=== PATIENT | male | born 1930 | race Caucasian/White ===

== ENCOUNTER → 2017-01-16 | Outpatient (CLI) | payer MEDICARE ==
--- NOTE | 2017-01-16 09:38 | US ---
EXAMINATION TYPE: US duplex aorta DATE OF EXAM: 01/16/2017 8:30 AM COMPARISON: NONE CLINICAL HISTORY: I71.4 AAA. EXAM MEASUREMENTS: Abdominal Aorta: Proximal: 2.5cm Mid: 2.3cm Distal: aortic aneurysm measuring 4.6cm x 5.4cm in transverse, long 7.8cm, anteroposterior 5.2cm , there is some moderate plaque within Bifurcation: Rt 1.5cm, Lt 1.4cm Proximal portion somewhat obscured by bowel gas. IMPRESSION: Infrarenal abdominal aortic aneurysm as noted above.
== END | disposition home or self-care (01) ==
LOC: RADUSMAIN 08:07
PROVIDERS: ATTEND Family Medicine
DX: I71.4 Abdominal aortic aneurysm, without rupture (principal)
CPT/HCPCS: 93979

== ENCOUNTER → 2017-01-26 | Outpatient (CLI) | payer MEDICARE ==
[~2017-01-26] MED LIST: REGADENOSON 0.4 MG/5 ML SYRINGE IV ONE
--- NOTE | 2017-01-26 12:23 | EST ---
DATE OF SERVICE: 01/26/2017 AGE: 86Y SEX: M HT: 69" WT: 180 lbs. Protocol Zia: Other: Lexiscan Cardiolite Stage: Dur. of Exercise: *Heart Rate Blood Pressure *Rest: 91 Rest: 147/94 * *Max. Achieved: 92 Maximum BP: 173/90 85% PMHR: 100% PMHR: *METS: INDICATIONS: Pre-op Surgery MEDICATIONS: Lisinopril, metoprolol, atorvastatin, citalopram. Patient was given Lexiscan injection over a period of 15 seconds. Peak heart rate of 92 was achieved. Maximum blood pressure of 173/90 mmHg was noted. Resting EKG shows normal sinus rhythm with multiple PVCs and few episodes of the ventricular couplets were noted in the resting stage. During Lexiscan injection again multiple PVCs. No ST segment depression. No significant ST segment change from the baseline was noted. FINAL IMPRESSION: 1. This electrocardiographic study is inconclusive to diagnose ischemia because of baseline abnormalities. 2. Results of the nuclear study will follow. 3. Multiple premature ventricular contractions and multiple episodes of ventricular couplets were noted in the resting state as well as during Lexiscan injection.
--- NOTE | 2017-01-26 12:36 | NM ---
EXAMINATION TYPE: NM stress lexiscan cardiolite DATE OF EXAM: 01/26/2017 11:35 AM COMPARISON: Prior exam February HISTORY: Coronary artery disease, myocardial infarction TECHNIQUE: After the intravenous administration of 10.9 mCi Tc 99m Sestamibi - Cardiolite resting SP ECT images acquired 55 minutes post injection. The patient received 0.4mg Lexiscan, 27.2 mCi Tc 99m Sestamibi - Stress images obtained [address] injection FINDINGS: Review of stress and rest SPECT images demonstrates no distinct perfusion abnormality. Gated analysi s shows normal wall motion with an estimated left ventricular ejection fraction of 43%. IMPRESSION: No scintigraphic evidence for reversible ischemia.
== END ==
LOC: RADNMMAIN 08:46
PROVIDERS: ATTEND Family Medicine
DX: I25.810 Atherosclerosis of coronary artery bypass graft(s) without angina pectoris (principal)
CPT/HCPCS: 93017; 78452; A9500; J2785

== ENCOUNTER → 2017-03-13 | Outpatient (CLI) | payer MEDICARE ==
--- NOTE | 2017-03-14 11:22 | ECHOF ---
Referral Reason:CAD MEASUREMENTS -------- HEIGHT: 175.3 cm WEIGHT: 83.0 kg BP: IVSd: 1.3 cm (0.6 - 1.1) LVIDd: 4.1 cm (3.9 - 5.3) LVPWd: 1.3 cm (0.6 - 1.1) IVSs: 1.7 cm LVIDs: 3.9 cm LVPWs: 1.0 cm LAESV Index (A-L): 30.10 ml/m Ao Diam: 3.3 cm (2.0 - 3.7) AV Cusp: 1.9 cm (1.5 - 2.6) LA Diam: 3.7 cm (2.7 - 3.8) MV EXCURSION: 17.701 mm (> 18.000) MV EF SLOPE: 34 mm/s (70 - 150) EPSS: 1.0 cm MV E Sergei: 0.49 m/s MV DecT: 376 ms MV A Sergei: 0.81 m/s MV E/A Ratio: 0.60 RAP: 5.00 mmHg RVSP: 13.32 mmHg FINDINGS -------- Sinus rhythm. This was a technically adequate study. The left ventricular size is normal. There is mild concentric left ventricular hypertrophy. Overall left ventricular systolic function is normal with, an EF between 55 - 60 %. The right ventricle is normal in size. LA is midly dilated 29-33ml/m2. The right atrial size is normal. There is mild aortic valve sclerosis. Mild mitral annular calcification present. Mild mitral regurgitation is present. Mild tricuspid regurgitation present. There is no evidence of pulmonary hypertension. The right ventricular systolic pressure, as measured by Doppler, is 13.32mmHg. Trace/mild (physiologic) pulmonic regurgitation. The aortic root size is normal. There is no pericardial effusion. CONCLUSIONS -------- 1. Sinus rhythm. 2. Trace/mild (physiologic) pulmonic regurgitation. 3. The aortic root size is normal. 4. There is no pericardial effusion. 5. There is mild concentric left ventricular hypertrophy. 6. Overall left ventricular systolic function is normal with, an EF between 55 - 60 %. 7. LA is midly dilated 29-33ml/m2. 8. There is mild aortic valve sclerosis. 9. Mild mitral annular calcification present. 10. Mild mitral regurgitation is present. 11. Mild tricuspid regurgitation present. 12. There is no evidence of pulmonary hypertension. GED INSTRUCTOR: Nicol Jaramillo RDCS
== END | disposition home or self-care (01) ==
LOC: RADECHMAIN 13:45
PROVIDERS: ATTEND Family Medicine
DX: I08.1 Rheumatic disorders of both mitral and tricuspid valves (principal)
CPT/HCPCS: 93306

== ENCOUNTER → 2018-02-25 | Outpatient (CLI) | payer MEDICARE ==
--- NOTE | 2018-02-26 11:24 | ECHOF ---
Referral Reason:I25.10 Atherosclerotic heart disease of [place]... MEASUREMENTS -------- HEIGHT: 175.3 cm WEIGHT: 88.0 kg BP: IVSd: 1.4 cm (0.6 - 1.1) LVIDd: 3.8 cm (3.9 - 5.3) LVPWd: 1.3 cm (0.6 - 1.1) IVSs: 1.7 cm LVIDs: 2.9 cm LVPWs: 2.4 cm LAESV Index (A-L): 18.37 ml/m Ao Diam: 3.9 cm (2.0 - 3.7) AV Cusp: 2.1 cm (1.5 - 2.6) LA Diam: 3.7 cm (2.7 - 3.8) MV EXCURSION: 14.577 mm (> 18.000) MV EF SLOPE: 83 mm/s (70 - 150) EPSS: 1.5 cm MV E Sergei: 0.57 m/s MV DecT: 348 ms MV A Sergei: 0.71 m/s MV E/A Ratio: 0.80 RAP: 5.00 mmHg RVSP: 11.16 mmHg FINDINGS -------- Sinus rhythm. This was a technically good study. Grossly normal LV size and systolic function. Unable to comment on regional wall motion. There is m ild concentric left ventricular hypertrophy. Overall left ventricular systolic function is low-norm al with, an EF between 50 - 55 %. There is paradoxical/dysynergic septal motion consistent with pos t-operative status. The right ventricle is normal in size and function. The left atrium is normal in size. The right atrium is normal in size. The aortic valve is trileaflet and appears structurally normal. There is trace mitral regurgitation. Trace tricuspid regurgitation present. The right ventricular systolic pressure, as measured by Dopp ler, is 11.16mmHg. Pulmonic valve appears structurally normal. The aortic root size is normal. Normal inferior vena cava with normal inspiratory collapse consistent with estimated right atrial pre ssure of 5 mmHg. The pericardium is normal. CONCLUSIONS -------- 1. Sinus rhythm. 2. This was a technically good study. 3. Grossly normal LV size and systolic function. Unable to comment on regional wall motion. 4. There is mild concentric left ventricular hypertrophy. 5. There is paradoxical/dysynergic septal motion consistent with post-operative status. 6. The right ventricle is normal in size and function. 7. The left atrium is normal in size. 8. The right atrium is normal in size. 9. The aortic valve is trileaflet and appears structurally normal. 10. There is trace mitral regurgitation. 11. Trace tricuspid regurgitation present. 12. The right ventricular systolic pressure, as measured by Doppler, is 11.16mmHg. 13. Pulmonic valve appears structurally normal. 14. The aortic root size is normal. 15. Normal inferior vena cava with normal inspiratory collapse consistent with estimated right atrial pressure of 5 mmHg. 16. The pericardium is normal. HORSERADISH MAKER: Belle Diaz RDCS
== END | disposition home or self-care (01) ==
LOC: RADECHMAIN 14:52
PROVIDERS: ATTEND Family Medicine
DX: I25.10 Atherosclerotic heart disease of native coronary artery without angina pectoris (principal); I51.7 Cardiomegaly; I42.9 Cardiomyopathy, unspecified
CPT/HCPCS: 93306

== ENCOUNTER → 2019-04-18 | Outpatient (CLI) | payer MEDICARE ==
[2019-04-18 08:51] LABS: Calcium 9.7 mg/dL (8.4-10.2)
[2019-04-18 08:52] LABS: Potassium 5.2 mmol/L (3.5-5.1)
--- NOTE | 2019-04-18 12:37 | CT ---
EXAMINATION TYPE: CT angio abdomen pelvis DATE OF EXAM: 04/18/2019 9:47 AM COMPARISON: CT of the chest dated 02/04/2010 HISTORY: Follow up to aortic aneurysm repair CT DLP: 1451.6 mGycm Automated exposure control for dose reduction was used. TECHNIQUE: Performed without and with IV Contrast, patient injected with 80 mL of Isovue 370. . FINDINGS: Mild chronic interstitial changes are seen at the lung bases. Small nodular densities seen in the ant erior left lower lobe measuring 0.6 cm on axial image 3 and slightly increased in size when compared to CT of the chest dated 02/04/2010. Postsurgical changes of infrarenal abdominal aortic aneurysm repair with aorto biiliac stent graft se en below the renal arteries and extending into the mid common iliac arteries. The graft is patent wit h a small amount of atheromatous plaque along the left anterior lateral edge. Aneurysm sac measures 4 .9 x 4.9 x 7.4 cm in AP by transverse by craniocaudad dimension. No evidence of contrast within the a neurysm sac to suggest endoleak. External iliac artery is patent. Nonvisualization of the right internal iliac artery. Left external i liac artery is patent. Bilateral renal arteries are patent. Celiac artery and superior mesenteric art eri are patent. Inferior mesenteric artery is patent. Liver, spleen, adrenal glands, pancreas and bilateral kidneys appear grossly unremarkable. Fatty atrophic changes are seen in the uncinate process of the pancreas. There is a inferior vena cav a filter. Sigmoid diverticulosis. No acute compression deformity. Left hip arthroplasty. 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 IMPRESSION: INFRARENAL AORTO BIILIAC GRAFT IS PATENT WITHOUT EVIDENCE OF ENDOLEAK. 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 Increasing size of left lower lobe nodule now measuring up to 0.6 cm. Findings may be accentuated due to motion artifact. Further evaluation with CT of the chest without contrast may be performed.
== END | disposition home or self-care (01) ==
LOC: RADCTMAIN 08:14
PROVIDERS: ATTEND Surgery
DX: Z13.6 Encounter for screening for cardiovascular disorders (principal); I74.5 Embolism and thrombosis of iliac artery; Z86.79 Personal history of other diseases of the circulatory system; Z98.890 Other specified postprocedural states
CPT/HCPCS: 80048; 36415; 74174; Q9967

== ENCOUNTER → 2019-06-04 | Outpatient (CLI) | payer MEDICARE ==
--- NOTE | 2019-06-04 10:47 | NM ---
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 The patient exercised using a JOANNA protocol and 1 minute prior to peak exercise was injected with 23 mCi Tc 99m Sestamibi - Stress images obtained 10 minutes post injectio n. FINDINGS: Targeted heart rate was achieved during performance of the study. Review of stress and rest SPECT amauri ges demonstrates no distinct perfusion abnormality. Gated analysis shows normal wall motion with an estimated left ventricular ejection fraction of 53 %. IMPRESSION: No scintigraphic evidence for reversible ischemia
--- NOTE | 2019-06-04 17:00 | EST ---
EXERCISE STRESS AGE: 88 SEX: Male HT: 69" WT: 182# PROTOCOL: Cardiolite Zia STAGE: 2 DURATION OF EXERCISE: 5:00 HEART RATE REST: 64 BLOOD PRESSURE REST: 153/76 MAXIMUM HEART RATE ACHIEVED: 119 MAXIMUM BLOOD PRESSURE: 203/77 85% MPHR: 114 100% MPHR: 134 METS: 6.2 INDICATIONS: Chest pain. CLINICAL INFORMATION: Patient was exercised for a total period of 5 minutes. Peak heart rate of 119 was achieved. Maximum blood pressure of 203/77 mmHg was noted. Resting EKG shows normal sinus rhythm with a QRS morphology suggestive of right bundle branch block pattern noted. No ST-segment depression suggestive of ischemia is noted during exercise. Occasional PVCs were noted. Patient did not complain of any anginal pain during the test. FINAL IMPRESSION: 1. This exercise status is not suggestive of ischemia. 2. Patient's exercise tolerance is normal. 3. Occasional PVCs are noted. The results of the nuclear study will follow. YIN / SHELBYN: [id number] /
== END | disposition home or self-care (01) ==
LOC: RADNMMAIN 07:51
PROVIDERS: ATTEND Family Medicine
DX: I25.10 Atherosclerotic heart disease of native coronary artery without angina pectoris (principal); R07.89 Other chest pain
CPT/HCPCS: 93017; 78452; A9500

== ENCOUNTER → 2019-07-18 | Outpatient (CLI) | payer MEDICARE ==
--- NOTE | 2019-07-18 13:52 | CT ---
EXAMINATION TYPE: CT chest wo con DATE OF EXAM: 07/18/2019 COMPARISON: 02/04/2010 HISTORY: Lung nodule CT DLP: 386.[address] of the chest was performed with lung and mediastinal window settings submitted. The la ck of contrast limits evaluation of the vascular, mediastinal and parenchymal structures including th e upper abdomen. LUNGS: Left lower lobe pulmonary nodule measures 5.6 mm. Right upper lobe pulmonary nodule measures 5 mm image 26. Scattered subpleural fibrosis noted. No evidence for volume loss or focal consolidation . No pleural effusion. MEDIASTINUM/MARÍA: Thoracic aorta is of normal caliber with limited evaluation given lack of contrast . The heart is mildly enlarged. No evidence for mediastinal mass. No lymph nodes greater than 1cm . UPPER ABDOMEN: Partially imaged aortic stent graft noted. IVC filter identified. OTHER: No significant other abnormality. IMPRESSION: 1. Nonspecific pulmonary nodularity. Consider follow-up study in the one year.
== END | disposition home or self-care (01) ==
LOC: RADCTMAIN 12:42
PROVIDERS: ATTEND Internal Medicine
DX: R91.1 Solitary pulmonary nodule (principal)
CPT/HCPCS: 71250

== ENCOUNTER → 2019-11-07 | Outpatient (CLI) | payer MEDICARE ==
--- NOTE | 2019-11-08 06:40 | US ---
EXAMINATION TYPE: US kidneys/renal and bladder DATE OF EXAM: 11/07/2019 COMPARISON: CT abdomen and pelvis April 18, 2019 CLINICAL HISTORY: R94.4 Abnormal results of Renal Study. EXAM MEASUREMENTS: Right Kidney: 12.3 x 5.6 x 4.0 cm Left Kidney: 12.0 x 5.3 x 5.0 cm Right Kidney: No hydronephrosis or masses seen Left Kidney: No hydronephrosis or masses seen Bladder: not fully distended There is no evidence for hydronephrosis at this point in time. No nephrolithiasis is seen. No moshe s are identified. Cortical thinning in both kidneys is redemonstrated. The urinary bladder is not gr eatly distended. Bilateral ureteral jets are not seen. Scanning right kidney adjacent liver is heterogeneously hyperechoic suggesting diffuse fatty infiltra tion. IMPRESSION: No hydronephrosis is noted bilaterally. Cortical thinning bilaterally consistent with pro duct of chronic medical renal disease.
== END | disposition home or self-care (01) ==
LOC: RADUSWWP 15:46
PROVIDERS: ATTEND Internal Medicine
DX: R94.4 Abnormal results of kidney function studies (principal)
CPT/HCPCS: 76770

== ENCOUNTER → 2021-01-14 | Outpatient (CLI) | payer MEDICARE ==
--- NOTE | 2021-01-14 19:07 | US ---
EXAMINATION TYPE: US kidneys/renal and bladder DATE OF EXAM: 01/14/2021 COMPARISON: NONE CLINICAL HISTORY: N18.3 CHR KIDNEY DISEASE STAGE 3. CKD stage 3 EXAM MEASUREMENTS: Right Kidney: 11.6 x 5.6 x 5.7 cm Left Kidney: 10.8 x 5.7 x 4.0 cm Right Kidney: thin renal cortex Left Kidney: thin renal cortex Bladder: appears wnl Bilateral Jets seen: no There is no evidence for hydronephrosis at this point in time. No nephrolithiasis is seen. No moshe s are identified. The urinary bladder is anechoic. Bilateral ureteral jets are seen. IMPRESSION: Correlate for chronic medical renal disease.
== END | disposition home or self-care (01) ==
LOC: RADUSWWP 15:28
PROVIDERS: ATTEND Internal Medicine
DX: N28.89 Other specified disorders of kidney and ureter (principal)
CPT/HCPCS: 76770